=== PATIENT | female | born 1960 | race Hispanic/Latino ===

== ENCOUNTER 2021-07-18 14:06 | Emergency (ER) | payer SELFPAY ==
[2021-07-18] MEDS ORDERED: METOCLOPRAMIDE 10 MG/2mL INJ ONE (15:20)
[2021-07-18] MEDS ORDERED: NA CHLORIDE 0.9% 500 ML ONE (15:20)
[2021-07-18] MEDS ORDERED: KETOROLAC 30 MG/ML INJ ONE (15:20)
[2021-07-18] MEDS ORDERED: DIPHENHYDRAMINE 50 MG/ML VIAL ONE (15:20)
--- NOTE | 2021-07-18 16:00 | EDPHYS ---
Physician Documentation [facility] Name: Tracy Peres Age: 61 yrs Sex: Female : 1960 Arrival Date: 07/18/2021 Time: 14:09 Bed 20 Private MD: ED Physician Taran Mcneil HPI: 07/18 16:18 This 61 yrs old Female presents to ER via Ambulatory with complaints of pm1 Headache, Neck Problem. 16:18 The patient complains of pain to the right frontal area, right side of the back of pm1 head, right side of forehead and right occipital area. The patient describes the headache as aching. 16:18 Onset: The symptoms/episode began/occurred 4 day(s) ago. Associated signs and symptoms: pm1 Pertinent negatives: fever, nausea, neck stiffness, vision changes, vomiting. Severity of symptoms: in the emergency department the pain is actually worse. Headache History: Other History of migraine headaches. the symptoms are aggravated by moving her head to the left. The patient has not recently seen a physician. Historical: - Allergies: 14:18 Codeine; ph - PMHx: 14:18 Migraine; ph - Immunization history:: Client reports having NOT received the Covid vaccine. - Social history:: Smoking status: Patient reports the use of cigarette tobacco products, smokes one-half pack cigarettes per day. ROS: 16:18 Constitutional: Negative for fever, chills, and weight loss. pm1 16:18 Cardiovascular: Negative for chest pain, palpitations, and edema, Respiratory: Negative for shortness of breath, cough, wheezing, and pleuritic chest pain, MS/Extremity: Negative for injury and deformity, Skin: Negative for injury, rash, and discoloration. 16:18 Neuro: Positive for headache, Negative for numbness, tingling, weakness. 16:18 All other systems are negative. Exam: 16:18 Skin: Warm, dry with normal turgor. Normal color with no rashes, no lesions, and no pm1 evidence of cellulitis. MS/ Extremity: Pulses equal, no cyanosis. Neurovascular intact. Full, normal range of motion. 16:18 Constitutional: The patient appears in no acute distress, alert, awake, non-diaphoretic, non-toxic, well developed, well hydrated, well groomed, well nourished, in obvious pain. 16:18 Head/face: Noted is no obvious of injury or deformity except tenderness, of the right occipital area, of the massage across right side of scalp from occiptal area to forehead relieves the patient's pain. 16:18 Eyes: Exam is negative for acute changes, Periorbital structures: no acute changes, Extraocular movements: intact throughout. 16:18 ENT: Mouth: no acute changes, Lips: normal, moist, Oral mucosa: normal, pink and intact, moist. 16:18 Neck: Exam negative for acute changes, External neck: no acute changes, C-spine: no acute changes, vertebral tenderness, is not appreciated, ROM/movement: Meningeal signs: are not present, Kernig's sign is negative, Brudzinski's sign is negative, nuchal rigidity, is not appreciated. 16:18 Cardiovascular: Exam negative for acute changes, Rate: normal, Rhythm: regular, Pulses: no pulse deficits are appreciated. 16:18 Respiratory: Exam negative for acute changes, respiratory distress, shortness of breath. 16:18 Neuro: Exam negative for acute changes, Orientation: is normal, Mentation: is normal, Motor: is normal, moves all fours. Vital Signs: 14:15 BP 140 / 99; Pulse 66; Resp 18; Temp 97.8; Pulse Ox 100% on R/A; Weight 49.9 kg; Height ph 5 ft. 4 in. (162.56 cm); 14:15 Body Mass Index 18.88 (49.90 kg, 162.56 cm) ph MDM: 15:12 Patient medically screened. pm1 15:59 Data reviewed: vital signs. Data interpreted: Pulse oximetry: on room air is 100 %. pm1 Interpretation: normal. 15:59 Medication response: 3/10 pain after medications given in the ER. pm1 15:59 Counseling: I had a detailed discussion with the patient and/or guardian regarding: the pm1 historical points, exam findings, and any diagnostic results supporting the discharge/admit diagnosis, the need for outpatient follow up, the need to transfer to another facility. 16:09 ED course: [place] reviewed. Patient reports that she is currently out of her pm1 dextramp-amphetamin. Since she is out of the medication, drug interaction with fiorinal is not a current concern. 07/18 15:12 Order name: IV Saline Lock; Complete Time: 15:29 pm1 Administered Medications: 15:29 Drug: NS 0.9% 500 ml Route: IV; Rate: bolus; Site: right antecubital; guevara 15:31 Drug: Benadryl (diphenhydrAMINE) 25 mg Route: IVP; Site: right antecubital; guevara 15:31 Follow up: Response: No adverse reaction guevara 15:31 Drug: Ketorolac 30 mg Route: IVP; Site: right antecubital; guevara 15:31 Follow up: Response: No adverse reaction guevara 15:31 Drug: Reglan (metoCLOPramide) 10 mg Route: IVP; Site: right antecubital; guevara 15:31 Follow up: Response: No adverse reaction guevara Disposition: 07/19 16:21 Co-signature as Attending Physician, Taran Mcneil MD I agree with the assessment and kdr plan of care. Disposition Summary: 07/18/21 16:00 Discharge Ordered Location: Home pm1 Problem: new pm1 Symptoms: have improved pm1 Condition: Stable pm1 Diagnosis - Headache pm1 Followup: pm1 - With: Emergency Department - When: As needed - Reason: Worsening of condition Followup: pm1 - With: Private Physician - When: 2 - 3 days - Reason: Recheck today's complaints, Continuance of care, Re-evaluation by your physician Discharge Instructions: - Discharge Summary Sheet pm1 - General Headache Without Cause pm1 - Tension Headache, Adult pm1 Forms: - Medication Reconciliation Form pm1 - Thank You Letter pm1 - Antibiotic Education pm1 - Prescription Opioid Use pm1 Prescriptions: - [id number] - take 1 tablet by ORAL route every 4 hours As needed; 20 tablet; Refills: 0, pm1 Product Selection Permitted Signatures: Taran Mcneil MD MD kdr Hall, Patricia, RN RN Ryan Lauren, [employer] pm1 Jazmin Portillo RN RN guevara
--- NOTE | 2021-07-18 16:00 | ER ---
Nurse's Notes [facility] Name: Tracy Peres Age: 61 yrs Sex: Female : 1960 Arrival Date: 07/18/2021 Time: 14:09 Bed 20 Private MD: Diagnosis: Headache Presentation: 07/18 14:15 Chief complaint: Patient states: R sided neck pain radiating to R side of head, states, ph " It feels like something is pinching in my neck." States that pain began Tuesday and has progressively gotten worse, reports hx of migraines but states that this is different. Coronavirus screen: At this time, the client does not indicate any symptoms associated with coronavirus-19. Ebola Screen: No symptoms or risks identified at this time. Initial Sepsis Screen: Does the patient meet any 2 criteria? No. Patient's initial sepsis screen is negative. Does the patient have a suspected source of infection? No. Patient's initial sepsis screen is negative. Risk Assessment: Do you want to hurt yourself or someone else? Patient reports no desire to harm self or others. Onset of symptoms was July 18, 2021. 14:15 Method Of Arrival: Ambulatory 14:15 Acuity: BONILLA 3 ph Triage Assessment: 15:14 Headache History: The patient has had previous headaches and this one is similar to guevara previous episodes. General: Appears in no apparent distress. Behavior is calm, cooperative. Pain: Pain currently is 8 out of 10 on a pain scale. Pain began gradually, Also complains of no other associated symptoms. Historical: - Allergies: 14:18 Codeine; ph - PMHx: 14:18 Migraine; ph - Immunization history:: Client reports having NOT received the Covid vaccine. - Social history:: Smoking status: Patient reports the use of cigarette tobacco products, smokes one-half pack cigarettes per day. Screenin:12 Abuse screen: Denies threats or abuse. Denies injuries from another. Nutritional guevara screening: No deficits noted. Tuberculosis screening: No symptoms or risk factors identified. Fall Risk None identified. Assessment: 15:12 Pain: Complains of pain in back head pain. Neuro: Level of Consciousness is awake, guevara alert, obeys commands, Oriented to person, place, time, situation, Reports headache. Vital Signs: 14:15 BP 140 / 99; Pulse 66; Resp 18; Temp 97.8; Pulse Ox 100% on R/A; Weight 49.9 kg; Height ph 5 ft. 4 in. (162.56 cm); 14:15 Body Mass Index 18.88 (49.90 kg, 162.56 cm) ph ED Course: 14:09 Patient arrived in ED. mr 14:18 Triage completed. ph 14:18 Arm band placed on. ph 15:03 [facility] pm1 15:03 Taran Mcneil MD is Attending Physician. pm1 15:12 Patient has correct armband on for positive identification. Bed in low position. guevara 15:12 No provider procedures requiring assistance completed. guevara 16:24 IV discontinued, intact, Pressure dressing applied. guevara Administered Medications: 15:29 Drug: NS 0.9% 500 ml Route: IV; Rate: bolus; Site: right antecubital; guevara 15:31 Drug: Benadryl (diphenhydrAMINE) 25 mg Route: IVP; Site: right antecubital; guevara 15:31 Follow up: Response: No adverse reaction guevara 15:31 Drug: Ketorolac 30 mg Route: IVP; Site: right antecubital; guevara 15:31 Follow up: Response: No adverse reaction guevara 15:31 Drug: Reglan (metoCLOPramide) 10 mg Route: IVP; Site: right antecubital; guevara 15:31 Follow up: Response: No adverse reaction guevara Outcome: 16:00 Discharge ordered by . pm1 16:24 Discharged to home guevara 16:24 Condition: good 16:24 Discharge instructions given to Prescriptions given X 1. 16:25 Patient left the ED. guevara Signatures: Christin Tapia mr Eunice Lo RN RN ph Ryan Bagley NP [employer] pm1 Jamzin Portillo RN RN guevara
[2021-07-18 16:47] VITALS: BP 140/99; TEMP 97.8; O2SAT 100
== END 2021-07-18 16:25 | disposition home or self-care (01) ==
LOC: ER 14:06
DX: R51.9 Headache, unspecified (principal); F17.210 Nicotine dependence, cigarettes, uncomplicated; Z88.5 Allergy status to narcotic agent
CPT/HCPCS: 96374; 96375; 99283; J1200; J2765; J7040